=== PATIENT | male | born 1975 | race Two or more races ===

== ENCOUNTER 2019-04-01 11:15 | Inpatient (IN) | payer OTHER ==
[~2019-04-01] VITALS: Ht 175.3 cm; Wt 94.3 kg
[2019-04-01] MEDS ORDERED: SYNTHROID75 MCG PO (14:17)
== END 2019-04-09 16:36 | disposition home or self-care (01) | DRG 331 ==
LOC: O/R 11:15 → SURG 04-06 05:44 → O/R 04-06 05:44 → SURH 04-06 11:15 → SURG 04-06 14:36 → SURH 04-06 16:30 → SURG 04-09 16:36
PROVIDERS: ADMIT Colon & Rectal Surgery
PROC: 0DJD8ZZ Inspection of Lower Intestinal Tract, Via Natural or Artificial Opening Endoscopic (ICD-10-PCS; 2019-04-06)
PROC: 0DTN4ZZ Resection of Sigmoid Colon, Percutaneous Endoscopic Approach (ICD-10-PCS; principal; 2019-04-06 16:30)
DX: K57.32 Diverticulitis of large intestine without perforation or abscess without bleeding (principal); K57.30 Diverticulosis of large intestine without perforation or abscess without bleeding; F41.8 Other specified anxiety disorders; E03.8 Other specified hypothyroidism; F17.200 Nicotine dependence, unspecified, uncomplicated; D64.89 Other specified anemias

== ENCOUNTER 2020-05-05 07:20 | Day surgery (SDC) | payer OTHER ==
[~2020-05-05 07:20] MED LIST: SYNTHROID75 MCG PO
== END 2020-05-05 13:00 | disposition home or self-care (01) ==
LOC: AMB-ENDOS 07:20
PROVIDERS: ATTEND Colon & Rectal Surgery
DX: K62.89 Other specified diseases of anus and rectum (principal); K64.1 Second degree hemorrhoids; Z20.828 Contact with and (suspected) exposure to other viral communicable diseases